=== PATIENT | male | born 1990 | race American Indian/Alaskan Native ===

== ENCOUNTER 2020-09-22 13:05 | Emergency (ER) | payer SELFPAY ==
[2020-09-22 14:25] LABS: Bilirubin,Urine NEG (Negative); Blood,Urine NEG (Negative); Color,Urine Straw (Yellow); Protein,Urine <15 mg/dL mg/dL (Negative); Urobilinogen,Urine < 2.0 mg/dL (<2.0); WBC,Urine < 1.0 /HPF (0.0-6.0)
[2020-09-22 14:34] LABS: Amphetamine Screen,Urine Negative; Benzodiazepines Screen,Urine Negative; Cocaine Screen,Urine Negative; Opiate Screen,Urine Negative
[2020-09-22 14:52] LABS: Basophils % (Auto) 0.4 % (0.0-1.8); Eosinophils # (Auto) 0.2 K/mm3 (0.0-0.4); Eosinophils % (Auto) 3.4 % (0.0-4.3); Hematocrit 43.8 % (35.5-45.6); Hemoglobin 14.4 gm/dl (11.8-15.2); Lymphocytes # (Auto) 1.4 K/mm3 (1.2-5.4); Lymphocytes % (Auto) 22.5 % (13.4-35.0); Mean Corpuscular HGB Conc 33 % (32-34); Mean Corpuscular Volume 87 fl (84-94); Monocytes # (Auto) 0.5 K/mm3 (0.0-0.8); Monocytes % (Auto) 7.5 % (0.0-7.3); Platelet Count 292 K/mm3 (140-440); Red Blood Count 5.02 M/mm3 (3.65-5.03); Red Cell Distribution Width 14.8 % (13.2-15.2)
[2020-09-22 14:58] LABS: Cannabinoid Screen,Urine PRESUMPTIVE NEGATIVE; Methadone Screen,Urine PRESUMPTIVE NEGATIVE
[2020-09-22 15:07] LABS: Alanine Aminotransferase 36 units/L (7-56); Albumin 4.2 g/dL (3.9-5); BUN/Creatinine Ratio 9; Blood Urea Nitrogen 11 mg/dL (9-20); Calcium 9.2 mg/dL (8.4-10.2); Hemolysis Index 8
--- NOTE | 2020-09-22 15:23 | Emergency Department Report ---
ED General Adult HPI - General Chief complaint: Psych Stated complaint: PSYCH Time Seen by Provider: 09/22/20 13:53 Source: patient, EMS Mode of arrival: Ambulatory Limitations: No Limitations - History of Present Illness Initial comments: Patient arrives via [facility] from his [facility] for psychosis. 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 Patient presented her hypervigilant and hyperverbal. Upon the staff trying to give him a shot to calm down the patient became sligh tly aggressive refusing stating it was battery acid. Patient does endorse having a mood disorder states he has been told he has bipolar. Patient denies a history of schizoaffective disorder. Also denies homicidal suicidal ideations. -: unknown Severity scale (0 -10): 0 Consistency: constant Improves with: none Worsens with: none Associated Symptoms: denies other symptoms Treatments Prior to Arrival: none - Related Data Allergies Allergy/AdvReac Type Severity Reaction Status Date / Time pollen extracts Allergy Mild Unknown Verified 09/22/20 13:58 ED Review of Systems ROS: Stated complaint: PSYCH Other details as noted in HPI Comment: All other systems reviewed and negative Constitutional: denies: chills, fever Eyes: denies: eye pain, eye discharge, vision change ENT: denies: ear pain, throat pain Respiratory: denies: cough, shortness of breath, wheezing Cardiovascular: denies: chest pain, palpitations Endocrine: no symptoms reported Gastrointestinal: denies: abdominal pain, nausea, diarrhea Genitourinary: denies: urgency, dysuria Musculoskeletal: denies: back pain, joint swelling, arthralgia Skin: denies: rash, lesions Neurological: denies: headache, weakness, paresthesias Psychiatric: denies: anxiety, depression Hematological/Lymphatic: denies: easy bleeding, easy bruising ED Past Medical Hx - Past Medical History Previous Medical History?: No - Surgical History Past Surgical History?: No - Social History Smoking Status: Never Smoker Substance Use Type: None ED Physical Exam - General Limitations: No Limitations General appearance: alert, in no apparent distress - Head Head exam: Present: atraumatic, normocephalic - Eye Eye exam: Present: normal appearance - ENT ENT exam: Present: mucous membranes moist - Neck Neck exam: Present: normal inspection - Respiratory Respiratory exam: Present: normal lung sounds bilaterally. Absent: respiratory distress - Cardiovascular Cardiovascular Exam: Present: regular rate, normal rhythm. Absent: systolic murmur, diastolic murmur, rubs, gallop - GI/Abdominal GI/Abdominal exam: Present: soft, normal bowel sounds. Absent: distended, tenderness - Rectal Rectal exam: Present: deferred - Extremities Exam Extremities exam: Present: normal inspection - Back Exam Back exam: Present: normal inspection - Neurological Exam Neurological exam: Present: alert, oriented X3, CN II-XII intact. Absent: motor sensory deficit - Psychiatric Psychiatric exam: Present: normal mood, other (Hyperverbal and psychotic) - Skin Skin exam: Present: warm, dry, intact, normal color. Absent: rash ED Course Vital Signs 09/22/20 14:00 Temperature 98.2 F Pulse Rate 61 Respiratory 15 Rate Blood Pressure 115/63 O2 Sat by Pulse 100 Oximetry ED Medical Decision Making - Lab Data Result diagrams: 09/22/20 14:07 09/22/20 14:07 Lab Results 09/22/20 09/22/20 09/22/20 Range/Units 14:07 14:07 14:07 WBC 6.1 (4.5-11.0) K/mm3 RBC 5.02 (3.65-5.03) M/mm3 Hgb 14.4 (11.8-15.2) gm/dl Hct 43.8 (35.5-45.6) % MCV 87 (84-94) fl MCH 29 (28-32) pg MCHC 33 (32-34) % RDW 14.8 (13.2-15.2) % Plt Count 292 (140-440) K/mm3 Lymph % (Auto) 22.5 (13.4-35.0) % [place] % (Auto) 7.5 H (0.0-7.3) % Eos % (Auto) 3.4 (0.0-4.3) % Baso % (Auto) 0.4 (0.0-1.8) % Lymph # (Auto) 1.4 (1.2-5.4) K/mm3 [place] # (Auto) 0.5 (0.0-0.8) K/mm3 Eos # (Auto) 0.2 (0.0-0.4) K/mm3 Baso # (Auto) 0.0 (0.0-0.1) K/mm3 Seg Neutrophils % 66.2 (40.0-70.0) % Seg Neutrophils # 4.1 (1.8-7.7) K/mm3 Sodium 136 L (137-145) mmol/L Potassium 3.9 (3.6-5.0) mmol/L Chloride 100.7 (98-107) mmol/L Carbon Dioxide 29 (22-30) mmol/L Anion Gap 10 mmol/L BUN 11 (9-20) mg/dL Creatinine 1.2 (0.8-1.3) mg/dL Estimated GFR > 60 ml/min BUN/Creatinine Ratio 9 % Glucose 84 (75-100) mg/dL Calcium 9.2 (8.4-10.2) mg/dL Total Bilirubin 0.30 (0.1-1.2) mg/dL AST 26 (5-40) units/L ALT 36 (7-56) units/L Alkaline Phosphatase 64 (35-129) units/L Total Protein 6.9 (6.3-8.2) g/dL Albumin 4.2 (3.9-5) g/dL Albumin/Globulin Ratio 1.6 % Urine Color (Yellow) Urine Turbidity (Clear) Urine pH (5.0-7.0) Ur Specific [place] (1.003-1.030) Urine Protein (Negative) mg/dL Urine Glucose (UA) (Negative) mg/dL Urine Ketones (Negative) mg/dL Urine Blood (Negative) Urine Nitrite (Negative) Urine Bilirubin (Negative) Urine Urobilinogen (<2.0) mg/dL Ur Leukocyte Esterase (Negative) Urine WBC (Auto) (0.0-6.0) /HPF Urine RBC (Auto) (0.0-6.0) /HPF Salicylates < 0.3 L (2.8-20.0) mg/dL Urine Opiates Screen Urine Methadone Screen Acetaminophen (10.0-30.0) ug/mL Ur Barbiturates Screen Ur Phencyclidine Scrn Ur Amphetamines Screen U Benzodiazepines Scrn Urine Cocaine Screen U Marijuana (THC) Screen Drugs of Abuse Note Plasma/Serum Alcohol (0-0.07) % 09/22/20 09/22/20 09/22/20 Range/Units 14:07 14:07 Unknown WBC (4.5-11.0) K/mm3 RBC (3.65-5.03) M/mm3 Hgb (11.8-15.2) gm/dl Hct (35.5-45.6) % MCV (84-94) fl MCH (28-32) pg MCHC (32-34) % RDW (13.2-15.2) % Plt Count (140-440) K/mm3 Lymph % (Auto) (13.4-35.0) % [place] % (Auto) (0.0-7.3) % Eos % (Auto) (0.0-4.3) % Baso % (Auto) (0.0-1.8) % Lymph # (Auto) (1.2-5.4) K/mm3 [place] # (Auto) (0.0-0.8) K/mm3 Eos # (Auto) (0.0-0.4) K/mm3 Baso # (Auto) (0.0-0.1) K/mm3 Seg Neutrophils % (40.0-70.0) % Seg Neutrophils # (1.8-7.7) K/mm3 Sodium (137-145) mmol/L Potassium (3.6-5.0) mmol/L Chloride (98-107) mmol/L Carbon Dioxide (22-30) mmol/L Anion Gap mmol/L BUN (9-20) mg/dL Creatinine (0.8-1.3) mg/dL Estimated GFR ml/min BUN/Creatinine Ratio % Glucose (75-100) mg/dL Calcium (8.4-10.2) mg/dL Total Bilirubin (0.1-1.2) mg/dL AST (5-40) units/L ALT (7-56) units/L Alkaline Phosphatase (35-129) units/L Total Protein (6.3-8.2) g/dL Albumin (3.9-5) g/dL Albumin/Globulin Ratio % Urine Color Straw (Yellow) Urine Turbidity Clear (Clear) Urine pH 7.0 (5.0-7.0) Ur Specific [place] 1.011 (1.003-1.030) Urine Protein <15 mg/dl (Negative) mg/dL Urine Glucose (UA) Neg (Negative) mg/dL Urine Ketones Neg (Negative) mg/dL Urine Blood Neg (Negative) Urine Nitrite Neg (Negative) Urine Bilirubin Neg (Negative) Urine Urobilinogen < 2.0 (<2.0) mg/dL Ur Leukocyte Esterase Neg (Negative) Urine WBC (Auto) < 1.0 (0.0-6.0) /HPF Urine RBC (Auto) 1.0 (0.0-6.0) /HPF Salicylates (2.8-20.0) mg/dL Urine Opiates Screen Urine Methadone Screen Acetaminophen 5.0 L (10.0-30.0) ug/mL Ur Barbiturates Screen Ur Phencyclidine Scrn Ur Amphetamines Screen U Benzodiazepines Scrn Urine Cocaine Screen U Marijuana (THC) Screen Drugs of Abuse Note Plasma/Serum Alcohol < 0.01 (0-0.07) % 09/22/20 Range/Units Unknown WBC (4.5-11.0) K/mm3 RBC (3.65-5.03) M/mm3 Hgb (11.8-15.2) gm/dl Hct (35.5-45.6) % MCV (84-94) fl MCH (28-32) pg MCHC (32-34) % RDW (13.2-15.2) % Plt Count (140-440) K/mm3 Lymph % (Auto) (13.4-35.0) % [place] % (Auto) (0.0-7.3) % Eos % (Auto) (0.0-4.3) % Baso % (Auto) (0.0-1.8) % Lymph # (Auto) (1.2-5.4) K/mm3 [place] # (Auto) (0.0-0.8) K/mm3 Eos # (Auto) (0.0-0.4) K/mm3 Baso # (Auto) (0.0-0.1) K/mm3 Seg Neutrophils % (40.0-70.0) % Seg Neutrophils # (1.8-7.7) K/mm3 Sodium (137-145) mmol/L Potassium (3.6-5.0) mmol/L Chloride (98-107) mmol/L Carbon Dioxide (22-30) mmol/L Anion Gap mmol/L BUN (9-20) mg/dL Creatinine (0.8-1.3) mg/dL Estimated GFR ml/min BUN/Creatinine Ratio % Glucose (75-100) mg/dL Calcium (8.4-10.2) mg/dL Total Bilirubin (0.1-1.2) mg/dL AST (5-40) units/L ALT (7-56) units/L Alkaline Phosphatase (35-129) units/L Total Protein (6.3-8.2) g/dL Albumin (3.9-5) g/dL Albumin/Globulin Ratio % Urine Color (Yellow) Urine Turbidity (Clear) Urine pH (5.0-7.0) Ur Specific [place] (1.003-1.030) Urine Protein (Negative) mg/dL Urine Glucose (UA) (Negative) mg/dL Urine Ketones (Negative) mg/dL Urine Blood (Negative) Urine Nitrite (Negative) Urine Bilirubin (Negative) Urine Urobilinogen (<2.0) mg/dL Ur Leukocyte Esterase (Negative) Urine WBC (Auto) (0.0-6.0) /HPF Urine RBC (Auto) (0.0-6.0) /HPF Salicylates (2.8-20.0) mg/dL Urine Opiates Screen Negative Urine Methadone Screen Presumptive negative Acetaminophen (10.0-30.0) ug/mL Ur Barbiturates Screen Negative Ur Phencyclidine Scrn Negative Ur Amphetamines Screen Negative U Benzodiazepines Scrn Negative Urine Cocaine Screen Negative U Marijuana (THC) Screen Presumptive negative Drugs of Abuse Note Disclamer Plasma/Serum Alcohol (0-0.07) % - Medical Decision Making Patient placed in the ED hold Patient arrival 1013 Patient medically cleared Awaiting mental health evaluation Critical care attestation.: If time is entered above; I have spent that time in minutes in the direct care of this critically ill patient, excluding procedure time. ED Disposition Clinical Impression: Psychosis Disposition: DC/TX-65 PSY HOSP/PSY UNIT Is pt being admited?: No Does the pt Need Aspirin: No Condition: Stable Referrals: PRIMARY CARE, [Primary Care Provider] - 3-5 Days
[2020-09-22 19:59] VITALS: BP 129/98
== END 2020-09-22 20:52 ==
LOC: ED 13:05
DX: F29 Unspecified psychosis not due to a substance or known physiological condition (principal); Z91.048 Other nonmedicinal substance allergy status
CPT/HCPCS: 36415; 80053; 80307; 80320; 81001; 85025; G0480

== ENCOUNTER 2021-01-20 15:05 | Inpatient (IN) | payer OTHER ==
[2021-01-20] MEDS ORDERED: LORazepam 2 MG/ML VIAL ONE (16:11)
[2021-01-20] MEDS ORDERED: ZIPRASIDONE MESYLATE 20 MG VIAL IM ONE (16:11)
--- NOTE | 2021-01-20 16:15 | Emergency Department Report ---
HPI - General Chief Complaint: Altered Mental Status Time Seen by Provider: 01/20/21 15:55 - HPI HPI: This is a 30-year-old -[place] male who presents to the emergency department via EMS for a medical and mental health evaluation after he was brou ght in for excited delirium. 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 Apparently the patient did not call in for his part-time job on Friday. He spent most of Friday, , Friday in his room. Today, his mother found him standing in the hallway naked just staring. She called for EMS and when they arrived he was seen laying in the position in the bathroom. They mentioned about bringing him to the emergency department and he became very agitated and aggressive and required 5 mg of Haldol, 5 mg of Versed, and 50 mg of Benadryl to sedate him and get him to the emergency department. The patient has been in the emergency department for about 50 minutes prior to my shift starting. I immediately went into see this patient in room #22 and got some history from EMS at bedside. The patient was arousable. As soon as I explained that the patient was brought in for an evaluation with concern for his mental state, the patient sat up and pulled off all of his monitoring, pulse ox and blood pressure cuff. Initially the patient was unable to tell me the appropriate year, but says it was because he just woke up after receiving these medications. After a few minutes the patient was able to tell me the year and the current president, and answer orientation questions appropriately. EMS also tells me that the mother has some kind of power of claims attorney. As we were getting the mother back to give more collateral information and explain the power of claims attorney status, the patient eloped from the emergency department. Our security was called but had not yet arrived. [facility] police have been called. The patient was seen here in September of this year for a mental health evaluation. 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 At that time he had admitted to my colleague that he had a history of a mood disorder and was told that he was bipolar. During that emergency department visit, the patient was transferred to a psychiatric facility. If the patient is found and brought back to the emergency department, he will be a 1013 and ED hold. I was able to speak with the patient's mother. She did show me appropriate power of claims attorney for medical decision making. She was able to give collateral information that does mirror the story told to me by [facility]. Adán roe says that once the patient came back Friday, he did not say another word until he spoke to me in the emergency department. She states that he has not been acting right. The patient was found and is currently down the hill at [facility] station #1. Mom says that she would like to avoid having the patient brought in by the police and has requested the patient receive medication to get him back into the emergency department. Mom also says that the patient was previously at [facility] and she will not allow him to go back to [facility] as she feels that he, and her, were not treated appropriately. ED Past Medical Hx - Social History Smoking Status: Never Smoker ED Review of Systems ROS: Stated complaint: MH EVAL Other details as noted in HPI Comment: Unobtainable due to pts medical conditions Physical Exam - Physical Exam Vital Signs: Vital Signs 01/20/21 15:55 O2 Sat by Pulse 100 Oximetry Physical Exam: GENERAL: The patient is well-developed well-nourished. HENT: Normocephalic. Atraumatic. Patient has moist mucous membranes. EYES: Extraocular motions are intact. Pupils equal reactive to light bilatera lly. NECK: Supple. Trachea is midline. CHEST/LUNGS: Clear to auscultation. There is no respiratory distress noted. HEART/CARDIOVASCULAR: Regular. There is no tachycardia. There is no murmur. ABDOMEN: Abdomen is soft, nontender. Patient has normal bowel sounds. SKIN: Skin is warm and dry. NEURO: Patient is awake and alert. He is not cooperative. No obvious motor or focal deficits. MUSCULOSKELETAL: There is no tenderness or deformity. There is no limitation range of motion. ED Course Vital Signs 01/20/21 15:55 O2 Sat by Pulse 100 Oximetry - Reevaluation(s) Reevaluation #1: 01/20/21 17:30 The patient was down at the [facility], station #1. Initially his family, as well as the fire department, were able to talk with the patient and get him to return to the emergency department without any further medication given. However, as the patient was walking back towards the psychiatric area of the emergency department, he turned around and attempted to elope again. The patient was given 5 mg of Haldol, 2 mg of Ativan, and 25 mg of Benadryl. The patient is now back in room #14 and is resting comfortably. Blood work has been obtained. The patient is on a 1013 and an ED hold. Reevaluation #2: 01/20/21 19:46 The patient CK level came back at about 2000. He has some mild renal insufficiency with a GFR of 50. There is a slight elevation in the AST level. We do not yet have a urinalysis. I spoke to the patient and while he may still have some sedation from the previous medications, he has initially agreed for an IV to be placed and to receive IV fluid. After the patient receives the IV fluid we will repeat the CK level and BMP to see if the patient can be medically cleared versus needing a medical admission. ED Medical Decision Making - Lab Data Result diagrams: 01/20/21 17:55 01/20/21 22:30 Lab Results 01/20/21 01/20/21 01/20/21 Range/Units 17:55 17:55 17:55 WBC 9.6 (4.5-11.0) K/mm3 RBC 5.64 H (3.65-5.03) M/mm3 Hgb 15.6 H (11.8-15.2) gm/dl Hct 48.6 H (35.5-45.6) % MCV 86 (84-94) fl MCH 28 (28-32) pg MCHC 32 (32-34) % RDW 13.5 (13.2-15.2) % Plt Count 295 (140-440) K/mm3 Lymph % (Auto) 17.5 (13.4-35.0) % [place] % (Auto) 7.7 H (0.0-7.3) % Eos % (Auto) 0.6 (0.0-4.3) % Baso % (Auto) 0.2 (0.0-1.8) % Lymph # (Auto) 1.7 (1.2-5.4) K/mm3 [place] # (Auto) 0.7 (0.0-0.8) K/mm3 Eos # (Auto) 0.1 (0.0-0.4) K/mm3 Baso # (Auto) 0.0 (0.0-0.1) K/mm3 Seg Neutrophils % 74.0 H (40.0-70.0) % Seg Neutrophils # 7.1 (1.8-7.7) K/mm3 Sodium 136 L (137-145) mmol/L Potassium 3.4 L (3.6-5.0) mmol/L Chloride 96.0 L (98-107) mmol/L Carbon Dioxide 13 L (22-30) mmol/L Anion Gap 30 mmol/L BUN 24 H (9-20) mg/dL Creatinine 1.9 H (0.8-1.3) mg/dL Estimated GFR 50 ml/min BUN/Creatinine Ratio 13 % Glucose 113 H (75-100) mg/dL Calcium 10.1 (8.4-10.2) mg/dL Total Bilirubin 1.10 (0.1-1.2) mg/dL AST 76 H (5-40) units/L ALT 51 (7-56) units/L Alkaline Phosphatase 58 (35-129) units/L Total Creatine Kinase (55-170) units/L Total Protein 7.8 (6.3-8.2) g/dL Albumin 4.7 (3.9-5) g/dL Albumin/Globulin Ratio 1.5 % Plasma/Serum Alcohol < 0.01 (0-0.07) % 01/20/21 01/20/21 01/20/21 Range/Units 17:55 22:30 22:30 WBC (4.5-11.0) K/mm3 RBC (3.65-5.03) M/mm3 Hgb (11.8-15.2) gm/dl Hct (35.5-45.6) % MCV (84-94) fl MCH (28-32) pg MCHC (32-34) % RDW (13.2-15.2) % Plt Count (140-440) K/mm3 Lymph % (Auto) (13.4-35.0) % [place] % (Auto) (0.0-7.3) % Eos % (Auto) (0.0-4.3) % Baso % (Auto) (0.0-1.8) % Lymph # (Auto) (1.2-5.4) K/mm3 [place] # (Auto) (0.0-0.8) K/mm3 Eos # (Auto) (0.0-0.4) K/mm3 Baso # (Auto) (0.0-0.1) K/mm3 Seg Neutrophils % (40.0-70.0) % Seg Neutrophils # (1.8-7.7) K/mm3 Sodium 137 (137-145) mmol/L Potassium 4.1 D (3.6-5.0) mmol/L Chloride 105.6 (98-107) mmol/L Carbon Dioxide 22 D (22-30) mmol/L Anion Gap 14 mmol/L BUN 23 H (9-20) mg/dL Creatinine 1.7 H (0.8-1.3) mg/dL Estimated GFR 57 ml/min BUN/Creatinine Ratio 14 % Glucose 84 (75-100) mg/dL Calcium 8.3 L D (8.4-10.2) mg/dL Total Bilirubin (0.1-1.2) mg/dL AST (5-40) units/L ALT (7-56) units/L Alkaline Phosphatase (35-129) units/L Total Creatine Kinase 1925 H 3416 H (55-170) units/L Total Protein (6.3-8.2) g/dL Albumin (3.9-5) g/dL Albumin/Globulin Ratio % Plasma/Serum Alcohol (0-0.07) % - Medical Decision Making The patient was initially brought in by EMS after his mother called 911 for what appears to be some psychosis. As previously stated, the patient became very agitated and aggressive when EMS arrived and discussed coming to the hospital. The patient required multiple medications for excited delirium. Initially I saw the patient in bed #21. Despite the sedation, the patient was easily arousable. After introducing myself as the emergency department physician and discussing both a medical and psychiatric evaluation, the patient once again became very agitated, began cursing at myself and ER staff, and then eloped from the emergency department. The patient was followed by his [facility] colleagues and they were able to get him into station #1 just down the hill. Then, along with his parents, they were able to get him to return to the emergency department. However, he did require another dose of medications once he saw that he was going to the psychiatric portion of the emergency department. The patient was placed on a 1013 and ED hold for what appears to be acute psychosis. The patient's blood work came back showing some renal insufficiency with a creatinine of 1.9, GFR of 50. He had some elevation in his AST, and the patient had some hypokalemia. With these lab values, and the fact the patient remained in his room at his home for about 3 days, followed by some excited delirium requiring medications, I had concern for possible rhabdomyolysis. His initial CK level came back at 1900. The patient was then given 2 L of IV fluid. His labs were rechecked and while the renal insufficiency improved, his CK level went up to 3400. I have concerned that his CK level will continue to increase over the next 24 to 48 hours. The patient will need further IV fluid resuscit ation, repeat labs to monitor his kidney function and CK level, and therefore is not able to be medically cleared for psychiatric placement at this time. The patient will be a medical admission but will remain as a 1013 and will be seen by the psychiatric team for further evaluation and treatment and possible placement. The patient has been accepted for admission by the hospitalist, Dr. Michelle. I also spoke with the patient's mother, his power of claims attorney, and updated her regarding the medical admission. Critical Care Time: No Critical care attestation.: If time is entered above; I have spent that time in minutes in the direct care of this critically ill patient, excluding procedure time. ED Disposition Clinical Impression: Rhabdomyolysis, Mild renal insufficiency, Acute psychosis, LFT elevation, Dehydration Disposition: OP ADMIT IP TO THIS HOSP Is pt being admited?: Yes Condition: Fair Time of Disposition: 00:12
[2021-01-20 18:43] LABS: Albumin 4.7 g/dL (3.9-5); Calcium 10.1 mg/dL (8.4-10.2)
[2021-01-20 18:45] LABS: Basophils % (Auto) 0.2 % (0.0-1.8); Eosinophils # (Auto) 0.1 K/mm3 (0.0-0.4); Eosinophils % (Auto) 0.6 % (0.0-4.3); Hematocrit 48.6 % (35.5-45.6); Hemoglobin 15.6 gm/dl (11.8-15.2); Lymphocytes # (Auto) 1.7 K/mm3 (1.2-5.4); Lymphocytes % (Auto) 17.5 % (13.4-35.0); Mean Corpuscular HGB Conc 32 % (32-34); Mean Corpuscular Volume 86 fl (84-94); Monocytes # (Auto) 0.7 K/mm3 (0.0-0.8); Monocytes % (Auto) 7.7 % (0.0-7.3); Platelet Count 295 K/mm3 (140-440); Red Blood Count 5.64 M/mm3 (3.65-5.03); Red Cell Distribution Width 13.5 % (13.2-15.2)
[2021-01-20] MEDS ORDERED: POTASSIUM CHLORIDE ER 20 MEQ TAB PO ONE (18:56)
[2021-01-20] MEDS ORDERED: SODIUM CHLORIDE 0.9% 1000 ML 1,000 ML IV ONE ×3 (19:33→23:48)
[2021-01-20 23:16] LABS: Calcium 8.3 mg/dL (8.4-10.2)
[2021-01-21] MEDS ORDERED: ONDANSETRON 4 MG/2 ML INJ IV PRN (00:27)
[2021-01-21] MEDS ORDERED: ALBUTEROL 2.5 MG/3 ML NEBU IH PRN (00:27)
[2021-01-21] MEDS ORDERED: ACETAMINOPHEN 325 MG TAB PO PRN (00:27)
--- NOTE | 2021-01-21 00:36 | History and Physical Report ---
History of Present Illness Date of examination: 01/21/21 Date of admission: 01/21/2021 Chief complaint: Altered mental status History of present illness: 30-year-old -[place] male who presents to the emergency department via EMS for a medical and mental health evaluation after he was brought in for excited delirium. 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 Katty arently the patient did not call in for his part-time job on Friday. He spent most of Friday, , Friday in his room. Today, his mother found him standing in the hallway naked just staring. She called for EMS and when they arrived he was seen laying in the position in the bathroom. They mentioned about bringing him to the emergency department and he became very agitated and aggressive and required 5 mg of Haldol, 5 mg of Versed, and 50 mg of Benadryl to sedate him and get him to the emergency department. The patient has been in the emergency department for about 50 minutes prior to my shift starting. I immediately went into see this patient in room #22 and got some hi story from EMS at bedside. The patient was arousable. As soon as I explained that the patient was brought in for an evaluation with concern for his mental state, the patient sat up and pulled off all of his monitoring, pulse ox and blood pressure cuff. Initially the patient was unable to tell me the appropriate year, but says it was because he just woke up after receiving these medications. After a few minutes the patient was able to tell me the year and the current president, and answer orientation questions appropriately. EMS also tells me that the mother has some kind of power of document review attorney. As we were getting the mother back to give more collateral information and explain the power of document review attorney status, the patient eloped from the emergency department. Our security was called but had not yet arrived. [employer] police have been called. The patient was seen here in September of this year for a mental health evaluation. At that time the patient presented as part of a 1013 that was done by [place] [employer]. At that time he had admitted to my colleague that he had a history of a mood disorder and was told that he was bipolar. During that emergency department visit, the patient was transferred to a psychiatric facility. In the emergency room patient is found to have 1013. Also patient found to have rhabdomyolysis CKs 3416, BUN 23 creatinine 1.7 Past History Past Medical History: other (Psychosis, bipolar disorder) Medications and Allergies Allergies Allergy/AdvReac Type Severity Reaction Status Date / Time pollen extracts Allergy Mild Unknown Verified 09/22/20 13:58 Active Meds: Active Medications Acetaminophen (Acetaminophen 325 Mg Tab) 650 mg PO Q4H PRN PRN Reason: Pain MILD(1-3)/Fever >100.5/SALAS Albuterol (Albuterol 2.5 Mg/3 Ml Nebu) 2.5 mg IH Q4HRT PRN PRN Reason: Shortness Of Breath Famotidine (Famotidine 20 Mg Tab) 20 mg PO BID RICKY Heparin Sodium (Porcine) (Heparin 5,000 Unit/1 Ml Vial) 5,000 unit SUB-Q Q12HR RICKY Sodium Chloride (Nacl 0.9% 1000 Ml) 1,000 mls @ 999 mls/hr IV BOLUS ONE Stop: 01/21/21 00:48 Sodium Chloride (Nacl 0.45% 1000 Ml) 1,000 mls @ 125 mls/hr IV DIRECT RICKY Ondansetron HCl (Ondansetron 4 Mg/2 Ml Inj) 4 mg IV Q8H PRN PRN Reason: Nausea And Vomiting Sodium Chloride (Sodium Chloride 0.9% 10 Ml Flush Syringe) 10 ml IV BID RICKY Sodium Chloride (Sodium Chloride 0.9% 10 Ml Flush Syringe) 10 ml IV PRN PRN PRN Reason: LINE FLUSH Review of Systems Constitutional: other (Altered mental status) Neurological: change in mentation Psychiatric: anxiety Exam - Constitutional Vitals: Temp Pulse Resp BP Pulse Ox 103 H 13 92/43 98 01/20/21 16:00 01/20/21 16:00 01/20/21 16:00 01/20/21 16:00 General appearance: Present: no acute distress, well-nourished - EENT Eyes: Present: PERRL ENT: hearing intact, clear oral mucosa - Neck Neck: Present: supple, normal ROM - Respiratory Respiratory effort: normal Respiratory: bilateral: CTA - Cardiovascular Heart Sounds: Present: S1 & S2. Absent: rub, click - Extremities Extremities: pulses symmetrical, No edema Peripheral Pulses: within normal limits - Abdominal General gastrointestinal: Present: soft, non-tender, non-distended, normal bowel sounds Male genitourinary: Present: normal - Integumentary Integumentary: Present: clear, warm, dry - Musculoskeletal Musculoskeletal: gait normal, strength equal bilaterally - Psychiatric Psychiatric: appropriate mood/affect, intact judgment & insight - Neurologic Neurologic: CNII-XII intact, moves all extremities Results - Labs CBC & Chem 7: 01/20/21 17:55 01/20/21 22:30 Labs: Laboratory Last Values WBC 9.6 K/mm3 (4.5-11.0) 01/20/21 17:55 RBC 5.64 M/mm3 (3.65-5.03) H 01/20/21 17:55 Hgb 15.6 gm/dl (11.8-15.2) H 01/20/21 17:55 Hct 48.6 % (35.5-45.6) H 01/20/21 17:55 MCV 86 fl (84-94) 01/20/21 17:55 MCH 28 pg (28-32) 01/20/21 17:55 MCHC 32 % (32-34) 01/20/21 17:55 RDW 13.5 % (13.2-15.2) 01/20/21 17:55 Plt Count 295 K/mm3 (140-440) 01/20/21 17:55 Lymph % (Auto) 17.5 % (13.4-35.0) 01/20/21 17:55 [place] % (Auto) 7.7 % (0.0-7.3) H 01/20/21 17:55 Eos % (Auto) 0.6 % (0.0-4.3) 01/20/21 17:55 Baso % (Auto) 0.2 % (0.0-1.8) 01/20/21 17:55 Lymph # (Auto) 1.7 K/mm3 (1.2-5.4) 01/20/21 17:55 [place] # (Auto) 0.7 K/mm3 (0.0-0.8) 01/20/21 17:55 Eos # (Auto) 0.1 K/mm3 (0.0-0.4) 01/20/21 17:55 Baso # (Auto) 0.0 K/mm3 (0.0-0.1) 01/20/21 17:55 Seg Neutrophils % 74.0 % (40.0-70.0) H 01/20/21 17:55 Seg Neutrophils # 7.1 K/mm3 (1.8-7.7) 01/20/21 17:55 Sodium 137 mmol/L (137-145) 01/20/21 22:30 Potassium 4.1 mmol/L (3.6-5.0) D 01/20/21 22:30 Chloride 105.6 mmol/L (98-107) 01/20/21 22:30 Carbon Dioxide 22 mmol/L (22-30) D 01/20/21 22:30 Anion Gap 14 mmol/L 01/20/21 22:30 BUN 23 mg/dL (9-20) H 01/20/21 22:30 Creatinine 1.7 mg/dL (0.8-1.3) H 01/20/21 22:30 Estimated GFR 57 ml/min 01/20/21 22:30 BUN/Creatinine Ratio 14 % 01/20/21 22:30 Glucose 84 mg/dL (75-100) 01/20/21 22:30 Calcium 8.3 mg/dL (8.4-10.2) L D 01/20/21 22:30 Total Bilirubin 1.10 mg/dL (0.1-1.2) 01/20/21 17:55 AST 76 units/L (5-40) H 01/20/21 17:55 ALT 51 units/L (7-56) 01/20/21 17:55 Alkaline Phosphatase 58 units/L (35-129) 01/20/21 17:55 Total Creatine Kinase 3416 units/L (55-170) H 01/20/21 22:30 Total Protein 7.8 g/dL (6.3-8.2) 01/20/21 17:55 Albumin 4.7 g/dL (3.9-5) 01/20/21 17:55 Albumin/Globulin Ratio 1.5 % 01/20/21 17:55 Plasma/Serum Alcohol < 0.01 % (0-0.07) 01/20/21 17:55 Assessment and Plan VTE prophylaxis?: Chemical Plan of care discussed with patient/family: Yes - Patient Problems (1) Rhabdomyolysis Current Visit: Yes Status: Acute Plan to address problem: Admit the patient to the medical floor. Regular diet. Half-normal saline at the rate of 125 cc/h. We will recheck the CK in the morning. Repeat BMP in the morning. Nephrology consult (2) Acute psychosis Current Visit: Yes Status: Acute Plan to address problem: Admit the patient to the medical floor. Patient is 1013. We consults psychiatry evaluation. Medication as per psych recommendation (3) Dehydration Current Visit: Yes Status: Acute Plan to address problem: Half-normal saline at the rate of 125 cc/h. We will recheck the CK in the morning. Repeat BMP in the morning. Nephrology consult (4) LFT elevation Current Visit: Yes Status: Acute Plan to address problem: We will recheck the CMP in the morning if needed will consult GI (5) KAMILLE (acute kidney injury) Current Visit: Yes Status: Acute Plan to address problem: Half-normal saline at the rate of 125 cc/h. Avoid nephrotoxic drug. Renally dose medication. Repeat BMP in the morning. Nephrology consult (6) DVT prophylaxis Current Visit: Yes Status: Acute Plan to address problem: Heparin 5000 units subcu every 12 hours for DVT prophylaxis. Pepcid 20 mg p.o. twice daily for GI prophylaxis. Patient is a full code
[2021-01-21] MEDS ORDERED: SODIUM CHLORIDE 0.45% 1000 ML 1,000 ML IV SCH (01:00)
--- NOTE | 2021-01-21 08:17 | Consultation ---
History of Present Illness - Reason for Consult Consult date: 01/21/21 acute renal failure - History of Present Illness 30-year-old -Turkish male who presents to the emergency department via EMS for a medical and mental health evaluation after he was brought in for excited delirium. in the ER he became very agitated and aggressive and required 5 mg of Haldol, 5 mg of Versed, and 50 mg of Benadryl to sedate him and get him to the emergency department. In the emergency room patient is found to have 1013. Also patient found to have rhabdomyolysis CKs 3416, BUN 23 creatinine 1.7 and renal consult was requested Past History Past Medical History: other (Psychosis, bipolar disorder) Medications and Allergies Allergies Allergy/AdvReac Type Severity Reaction Status Date / Time pollen extracts Allergy Mild Unknown Verified 09/22/20 13:58 Active Meds: Active Medications Acetaminophen (Acetaminophen 325 Mg Tab) 650 mg PO Q4H PRN PRN Reason: Pain MILD(1-3)/Fever >100.5/SALAS Albuterol (Albuterol 2.5 Mg/3 Ml Nebu) 2.5 mg IH Q4HRT PRN PRN Reason: Shortness Of Breath Famotidine (Famotidine 20 Mg Tab) 20 mg PO BID RICKY Heparin Sodium (Porcine) (Heparin 5,000 Unit/1 Ml Vial) 5,000 unit SUB-Q Q12HR RICKY Sodium Chloride (Nacl 0.45% 1000 Ml) 1,000 mls @ 125 mls/hr IV DIRECT RICKY Ondansetron HCl (Ondansetron 4 Mg/2 Ml Inj) 4 mg IV Q8H PRN PRN Reason: Nausea And Vomiting Sodium Chloride (Sodium Chloride 0.9% 10 Ml Flush Syringe) 10 ml IV BID RICKY Sodium Chloride (Sodium Chloride 0.9% 10 Ml Flush Syringe) 10 ml IV PRN PRN PRN Reason: LINE FLUSH Review of Systems ROS unobtainable: due to mental status Exam - Vital Signs Vital signs: Vital Signs Pulse Ox 100 01/20/21 15:22 - General Appearance General appearance: well-developed, well-nourished EENT: ATNC, mucous membranes dry Neck: Present: neck supple Respiratory: Clear to Ascultation Heart: tachycardia Gastrointestinal: Present: normoactive bowel sounds Integumentary: no rash, warm and dry Neurologic: other (does not follow commands) Musculoskeletal: Present: other (no edema in BLE) Results - Lab Results 01/20/21 17:55 01/20/21 22:30 Most recent lab results Calcium 8.3 mg/dL (8.4-10.2) L D 01/20/21 22:30 Assessment and Plan (1) Rhabdomyolysis (2) Acute psychosis (3) Dehydration (4) LFT elevation (5) KAMILLE (acute kidney injury) kidney function is normal at baseline, KAMILLE 2/2 prerenal azotemia cont NS 125 cc/h will check renal US will check urine lytes and protein will cont to monitor CK, it is trending down renally dose meds strict I&O daily weight Andrea Jackson MD [phone]
--- NOTE | 2021-01-21 08:21 | XRay Report ---
CHEST 1 VIEW INDICATION: Altered mental status. COMPARISON: None. FINDINGS: Support devices: None. Heart: Normal. Lungs/Pleura: No acute pulmonary or pleural findings. IMPRESSION: 1. No acute findings. Signer Name: Avinash Valdez MD Signed: 01/21/2021 8:17 AM Workstation Name: [id number]
[2021-01-21] MEDS: HEPARIN 5,000 UNIT/1 ML VIAL SUB-Q SCH (10:37)
[2021-01-21] MEDS: FAMOTIDINE 20 MG TAB PO SCH ×2 (10:37→22:00)
--- NOTE | 2021-01-21 10:41 | Event Note ---
Date: 01/21/21 Patient presented with altered mental status, acute kidney injury, rhabdomyolysis. I have seen and examined him. Continue current management. Psych consulted.
[2021-01-21] MEDS ORDERED: SODIUM CHLORIDE 0.9% 1000 ML 1,000 ML IV SCH (10:45)
--- NOTE | 2021-01-21 11:22 | Ultrasound Report ---
ULTRASOUND RENAL INDICATION: renal failure. COMPARISON: No relevant prior imaging study available. FINDINGS: RIGHT KIDNEY: Size: 11.2 cm. Echogenicity: Increased. Cortical thickness: Normal. Stones: None. Hydronephrosis: None. Cyst or mass: None. LEFT KIDNEY: Size: 11.1 cm. Echogenicity: Increased. Cortical thickness: Normal. Stones: None. Hydronephrosis: None. Cyst or mass: None. Urinary Bladder: No significant abnormality. Free Fluid: None. Additional Findings: None. IMPRESSION 1. No acute sonographic abnormality of the kidneys. Increased echogenicity in the cortex of both kidn eys can be seen in the setting of medical renal disease. Signer Name: Avinash Valdez MD Signed: 01/21/2021 11:17 AM Workstation Name: [id number]
--- NOTE | 2021-01-21 11:35 | Consultation ---
History of Present Illness - Reason for Consult Consult date: 01/21/21 Reason for consult: AMS - History of Present Psychiatric Illness Per ER Note: This is a 30-year-old -Malagasy male who presents to the emergency department via EMS for a medical and mental health evaluation after he was brought in for excited delirium. 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 Apparently the patient did not call in for his part-time job on Friday. He spent most of Friday, , Friday in his room. Today, his mother found him standing in the hallway naked just staring. She called for EMS and when they arrived he was seen laying in the position in the bathroom. They mentioned about bringing him to the emergency department and he became very agitated and aggressive and required 5 mg of Haldol, 5 mg of Versed, and 50 mg of Benadryl to sedate him and get him to the emergency department. The patient has been in the emergency department for about 50 minutes prior to my shift starting. I immediately went into see this patient in room #22 and got some history from EMS at bedside. The patient was arousable. As soon as I explained that the patient was brought in for an evaluation with concern for his mental state, the patient sat up and pulled off all of his monitoring, pulse ox and blood pressure cuff. Initially the patient was unable to tell me the appropriate year, but says it was because he just woke up after receiving these medications. After a few minutes the patient was able to tell me the year and the current president, and answer orientation questions appropriately. EMS also tells me that the mother has some kind of power of litigation attorney. As we were getting the mother back to give more collateral information and explain the power of litigation attorney status, the patient eloped from the emergency department. Our security was called but had not yet arrived. [facility] police have been called. During my evaluation of 30y/o Donte Ferguson, he is lying in n his back staring at the ceiling. He doesn't look at me or acknowledge me when I walk up. The patient does speak to me but he continues to stare at the ceiling. He is a/o x 3. He doesn't appear to be forthcoming about what is really going on with him. He says his mom called 911 but he's unsure why. He says "she did it without speaking to me." I asked the patient why did his mother think he needed medical attention, he replies "I don't know. I'm not sure why she would call 911." I ask him what was going on at the time when 911 was called. The patient says "I was in the bathroom praying out loud to God. It wasn't meant for her to hear." When asking the patient what he was praying out loud about he states "I don't remember. It was for God." The patient denies hallucinations when asked, but I ask him why is he staring at the ceiling and not looking at me, he replies "I'm looking at God. I only need to see him." The patient denies SI/HI. He says he did have an attempt "in his college days." He then says "I have felt suicidal on up til now." When asking the patient again was he suicidal he replies "no." He says he was recently admitted to [facility] on Good Friday of this year he says for Mood Disorder. He denies taking any medications, he says "because I don't need them." Diagnoses: Mood disorder Suicide attempts or Self-harm behavior: Yes Prior psychiatric hospitalizations: Yes Substance Abuse history: Denies Previous psychiatric medications tried: did not take them Outpatient treatment: Denies PAST MEDICAL HISTORY: None reported Family Psychiatric History: None reported or documented SOCIAL HISTORY Marital Status: Single Living Arrangements: with mother Employment Status: Employed Access to guns/weapons: Denies Education: high school History of Abuse: none reported Legal History: none reported REVIEW OF SYSTEMS Constitutional: Negative for weight loss ENT: Negative for stridor Respiratory: Negative for cough or hemoptysis All other systems reviewed and are negative MENTAL STATUS EXAMINATION General Appearance and Behavior: Age appropriate, good hygiene, wearing appropriate clothes, calm, cooperative, no eye contact Cooperation: Participating, guarded Psychomotor Behavior: normal Mood: okay Affect and affective range: Restricted Thought Process: goal oriented Thought Content: None Speech: Normal volume, Regular rate and rhythm, Suicidal Ideation: Unclear Homicidal Ideation: Denies Hallucinations: Visual Delusions: None elicited Impulse Control: Normal Insight and Judgment: Limited insight and judgment Memory: Limited Attention: Limited Orientation: Alert, oriented Assessment and Plan (1) Acute Psychosis Treatment Plan 1013 Olanzapine 5mg po daily Prozac 10mg po daily Trazodone 50mg po qhs Medical: Per primary Sitter: Defer to primary Disposition: Recommend acute psychiatric inpatient treatment. Will follow. Thanks. Case staffed with Dr. Ford. Medications and Allergies Allergies Allergy/AdvReac Type Severity Reaction Status Date / Time pollen extracts Allergy Mild Unknown Verified 09/22/20 13:58 Active Meds: Active Medications Acetaminophen (Acetaminophen 325 Mg Tab) 650 mg PO Q4H PRN PRN Reason: Pain MILD(1-3)/Fever >100.5/SALAS Albuterol (Albuterol 2.5 Mg/3 Ml Nebu) 2.5 mg IH Q4HRT PRN PRN Reason: Shortness Of Breath Famotidine (Famotidine 20 Mg Tab) 20 mg PO BID [facility] Last Admin: 01/21/21 10:37 Dose: 20 mg Documented by: Heparin Sodium (Porcine) (Heparin 5,000 Unit/1 Ml Vial) 5,000 unit SUB-Q Q12HR [facility] Last Admin: 01/21/21 10:37 Dose: Not Given Documented by: Sodium Chloride (Nacl 0.45% 1000 Ml) 1,000 mls @ 125 mls/hr IV DIRECT [facility] Ondansetron HCl (Ondansetron 4 Mg/2 Ml Inj) 4 mg IV Q8H PRN PRN Reason: Nausea And Vomiting Sodium Chloride (Sodium Chloride 0.9% 10 Ml Flush Syringe) 10 ml IV BID [facility] Last Admin: 01/21/21 10:37 Dose: 10 ml Documented by: Sodium Chloride (Sodium Chloride 0.9% 10 Ml Flush Syringe) 10 ml IV PRN PRN PRN Reason: LINE FLUSH Mental Status Exam - Vital signs Last Vital Signs Temp 98.6 F 01/21/21 08:38 Pulse 92 H 01/21/21 08:38 Resp 18 01/21/21 08:38 BP 119/72 01/21/21 08:38 Pulse Ox 95 01/21/21 09:24 Results Result Diagrams: 01/20/21 17:55 01/20/21 22:30 Abnormal lab results 01/20/21 01/20/21 01/20/21 Range/Units 17:55 17:55 17:55 RBC 5.64 H (3.65-5.03) M/mm3 Hgb 15.6 H (11.8-15.2) gm/dl Hct 48.6 H (35.5-45.6) % [place] % (Auto) 7.7 H (0.0-7.3) % Seg Neutrophils % 74.0 H (40.0-70.0) % Sodium 136 L (137-145) mmol/L Potassium 3.4 L (3.6-5.0) mmol/L Chloride 96.0 L (98-107) mmol/L Carbon Dioxide 13 L (22-30) mmol/L BUN 24 H (9-20) mg/dL Creatinine 1.9 H (0.8-1.3) mg/dL Glucose 113 H (75-100) mg/dL Calcium (8.4-10.2) mg/dL AST 76 H (5-40) units/L Total Creatine Kinase 1925 H (55-170) units/L 01/20/21 01/20/21 Range/Units 22:30 22:30 RBC (3.65-5.03) M/mm3 Hgb (11.8-15.2) gm/dl Hct (35.5-45.6) % [place] % (Auto) (0.0-7.3) % Seg Neutrophils % (40.0-70.0) % Sodium (137-145) mmol/L Potassium (3.6-5.0) mmol/L Chloride (98-107) mmol/L Carbon Dioxide (22-30) mmol/L BUN 23 H (9-20) mg/dL Creatinine 1.7 H (0.8-1.3) mg/dL Glucose (75-100) mg/dL Calcium 8.3 L D (8.4-10.2) mg/dL AST (5-40) units/L Total Creatine Kinase 3416 H (55-170) units/L All other labs normal.
[2021-01-21] MEDS: FLUoxetine 10 MG TAB PO SCH (13:11)
[2021-01-21] MEDS: SODIUM CHLORIDE 0.9% 1000 ML 1,000 ML IV SCH (16:19)
[2021-01-21] MEDS: traZODone 50 MG TAB PO SCH (22:00)
[2021-01-22 05:44] LABS: Basophils % (Auto) 0.9 % (0.0-1.8); Eosinophils # (Auto) 0.2 K/mm3 (0.0-0.4); Eosinophils % (Auto) 3.5 % (0.0-4.3); Hematocrit 40.3 % (35.5-45.6); Hemoglobin 13.5 gm/dl (11.8-15.2); Lymphocytes # (Auto) 1.5 K/mm3 (1.2-5.4); Lymphocytes % (Auto) 31.9 % (13.4-35.0); Mean Corpuscular HGB Conc 34 % (32-34); Mean Corpuscular Volume 85 fl (84-94); Monocytes # (Auto) 0.3 K/mm3 (0.0-0.8); Monocytes % (Auto) 7.1 % (0.0-7.3); Platelet Count 231 K/mm3 (140-440); Red Blood Count 4.74 M/mm3 (3.65-5.03); Red Cell Distribution Width 13.3 % (13.2-15.2)
[2021-01-22 06:01] LABS: Alanine Aminotransferase 55 units/L (7-56); Albumin 3.7 g/dL (3.9-5); BUN/Creatinine Ratio 10; Blood Urea Nitrogen 12 mg/dL (9-20); Calcium 8.8 mg/dL (8.4-10.2); Hemolysis Index 8
[2021-01-22] MEDS ORDERED: POTASSIUM CHLORIDE ER 20 MEQ TAB PO SCH (08:00)
[2021-01-22] MEDS: HEPARIN 5,000 UNIT/1 ML VIAL SUB-Q SCH ×3 (08:25→22:26)
--- NOTE | 2021-01-22 08:39 | Progress Note ---
Assessment and Plan Assessment and plan: (1) Rhabdomyolysis Current Visit: Yes Status: Acute Plan to address problem: Admit the patient to the medical floor. Regular diet. Half-normal saline at the rate of 125 cc/h. We will recheck the CK in the morning. Repeat BMP in the morning. Nephrology consult (2) Acute psychosis Current Visit: Yes Status: Acute Plan to address problem: Admit the patient to the medical floor. Patient is 1013. We consults psychiatry evaluation. Medication as per psych recommendation (3) Dehydration Current Visit: Yes Status: Acute Plan to address problem: Half-normal saline at the rate of 125 cc/h. We will recheck the CK in the morning. Repeat BMP in the morning. Nephrology consult (4) LFT elevation Current Visit: Yes Status: Acute Plan to address problem: We will recheck the CMP in the morning if needed will consult GI (5) KAMILLE (acute kidney injury) due to vasomotor nephropathy Current Visit: Yes Status: Acute Plan to address problem: Half-normal saline at the rate of 125 cc/h. Avoid nephrotoxic drug. Renally dose medication. Repeat BMP in the morning. Nephrology consult (6) DVT prophylaxis Current Visit: Yes Status: Acute Plan to address problem: Heparin 5000 units subcu every 12 hours for DVT prophylaxis. Pepcid 20 mg p.o. twice daily for GI prophylaxis. Patient is a full code 01/22/21 Patient is 30 yo with history of psychosis, bipolar disorder. He presented with altered mental status. He is diagnosed with acute psychosis, rhabdomyolysis, dehydration, acute kidney injury due to vasomotor nephropathy. He is on 1013. He says he wants to go home, but needs Psych re-eval. Follow daily Creatinine kinase for rhabdomyolysis. He is on iv fluids fror rhabdomyolysis and KAMILLE. Cr improved 1.2 today. History Interval history: patient presented with altered mental status, diagnosed with acute psychosis, rhabdomyolysis,KAMILLE He feels better today. He tells me he wants to go home, patient on 1013 Hospitalist Physical - Physical exam Narrative exam: Gen: Not in acute distress, lying in bed, has mask on HEENT: Normocephalic, atraumatic Neck : supple, no JVD Heart:S1 and S2 reg, no murmurs, rubs or gallop Lungs: clear to auscultation bilaterally, no wheeze Abd: Soft , non tender, non distended, normal bowel sounds Ext: No edema, no clubbing, no cyanosis Neuro: Awake, alert, oriented X3, moves all ext - Constitutional Vitals: Temp Pulse Resp BP Pulse Ox 97.2 F L 57 L 20 114/68 97 01/22/21 03:28 01/22/21 05:24 01/22/21 03:28 01/22/21 03:28 01/22/21 03:28 General appearance: Present: no acute distress, well-nourished Results - Labs CBC & Chem 7: 01/22/21 04:37 01/22/21 04:37 Labs: Laboratory Last Values WBC 4.8 K/mm3 (4.5-11.0) 01/22/21 04:37 RBC 4.74 M/mm3 (3.65-5.03) 01/22/21 04:37 Hgb 13.5 gm/dl (11.8-15.2) 01/22/21 04:37 Hct 40.3 % (35.5-45.6) D 01/22/21 04:37 MCV 85 fl (84-94) 01/22/21 04:37 MCH 29 pg (28-32) 01/22/21 04:37 MCHC 34 % (32-34) 01/22/21 04:37 RDW 13.3 % (13.2-15.2) 01/22/21 04:37 Plt Count 231 K/mm3 (140-440) 01/22/21 04:37 Lymph % (Auto) 31.9 % (13.4-35.0) 01/22/21 04:37 Iron % (Auto) 7.1 % (0.0-7.3) 01/22/21 04:37 Eos % (Auto) 3.5 % (0.0-4.3) 01/22/21 04:37 Baso % (Auto) 0.9 % (0.0-1.8) 01/22/21 04:37 Lymph # (Auto) 1.5 K/mm3 (1.2-5.4) 01/22/21 04:37 Iron # (Auto) 0.3 K/mm3 (0.0-0.8) 01/22/21 04:37 Eos # (Auto) 0.2 K/mm3 (0.0-0.4) 01/22/21 04:37 Baso # (Auto) 0.0 K/mm3 (0.0-0.1) 01/22/21 04:37 Seg Neutrophils % 56.6 % (40.0-70.0) 01/22/21 04:37 Seg Neutrophils # 2.7 K/mm3 (1.8-7.7) 01/22/21 04:37 Sodium 140 mmol/L (137-145) 01/22/21 04:37 Potassium 3.4 mmol/L (3.6-5.0) L 01/22/21 04:37 Chloride 107.4 mmol/L (98-107) H 01/22/21 04:37 Carbon Dioxide 25 mmol/L (22-30) 01/22/21 04:37 Anion Gap 11 mmol/L 01/22/21 04:37 BUN 12 mg/dL (9-20) 01/22/21 04:37 Creatinine 1.2 mg/dL (0.8-1.3) 01/22/21 04:37 Estimated GFR > 60 ml/min 01/22/21 04:37 BUN/Creatinine Ratio 10 % 01/22/21 04:37 Glucose 94 mg/dL (75-100) 01/22/21 04:37 Calcium 8.8 mg/dL (8.4-10.2) 01/22/21 04:37 Total Bilirubin 0.40 mg/dL (0.1-1.2) 01/22/21 04:37 AST 109 units/L (5-40) H 01/22/21 04:37 ALT 55 units/L (7-56) 01/22/21 04:37 Alkaline Phosphatase 50 units/L (35-129) 01/22/21 04:37 Total Creatine Kinase 3416 units/L (55-170) H 01/20/21 22:30 Total Protein 6.0 g/dL (6.3-8.2) L D 01/22/21 04:37 Albumin 3.7 g/dL (3.9-5) L 01/22/21 04:37 Albumin/Globulin Ratio 1.6 % 01/22/21 04:37 Nasal Screen MRSA (PCR) Negative (Negative) 01/21/21 09:20 Plasma/Serum Alcohol < 0.01 % (0-0.07) 01/20/21 17:55 Coronavirus (PCR) Negative (Negative) 01/21/21 09:20 Swenson/IV: Voiding Method Toilet Active Medications - Current Medications Current Medications: Generic Name Dose Route Start Last Admin Trade Name Freq PRN Reason Stop Dose Admin Acetaminophen 650 mg 01/21/21 00:27 Acetaminophen 325 Mg Tab PO Q4H PRN Pain MILD(1-3)/Fever >100.5/SALAS Albuterol 2.5 mg 01/21/21 00:27 Albuterol 2.5 Mg/3 Ml Nebu IH Q4HRT PRN Shortness Of Breath Famotidine 20 mg 01/21/21 10:00 01/21/21 22:00 Famotidine 20 Mg Tab PO 20 mg BID RICKY Administration Fluoxetine HCl 10 mg 01/21/21 12:00 01/21/21 13:11 Fluoxetine 10 Mg Tab PO 10 mg QDAY RICKY Administration Heparin Sodium (Porcine) 5,000 unit 01/21/21 10:00 01/22/21 08:25 Heparin 5,000 Unit/1 Ml Vial SUB-Q Not Given Q12HR RICKY Sodium Chloride 1,000 mls @ 125 mls/hr 01/21/21 16:00 01/21/21 16:19 Nacl 0.9% 1000 Ml IV 125 mls/hr DIRECT RICKY Administration Olanzapine 5 mg 01/21/21 12:00 01/21/21 13:11 Olanzapine 5 Mg Tab PO 5 mg QDAY RICKY Administration Ondansetron HCl 4 mg 01/21/21 00:27 Ondansetron 4 Mg/2 Ml Inj IV Q8H PRN Nausea And Vomiting Potassium Chloride 40 meq 01/22/21 08:00 Potassium Chloride Er 20 Meq Tab PO 01/22/21 11:00 ONCE RICKY Sodium Chloride 10 ml 01/21/21 10:00 01/21/21 22:00 Sodium Chloride 0.9% 10 Ml Flush Syringe IV 10 ml BID RICKY Administration Sodium Chloride 10 ml 01/21/21 00:27 Sodium Chloride 0.9% 10 Ml Flush Syringe IV PRN PRN LINE FLUSH Trazodone HCl 50 mg 01/21/21 22:00 01/21/21 22:00 Trazodone 50 Mg Tab PO 50 mg QHS RICKY Administration Nutrition/Malnutrition Assess - Dietary Evaluation Nutrition/Malnutrition Findings: Nutrition Notes Start: 01/21/21 11:03 Freq: Status: Active Protocol: Document 01/21/21 11:03 JEANA (Rec: 01/21/21 11:07 JEANA [id number]) Nutrition Notes Need for Assessment generated from: MD Order,painter foreman,MST Initial or Follow up Assessment Current Diagnosis Acute Kidney Injury Other Pertinent Diagnosis AMS, rhabdomyolysis, psychosis , dehydration, r/o COVID-19 Current Diet regular Subjective/Other Information MD order for ONS. RN screen for MST. Unable to speak with pt. Nutrition Intervention Follow-Up By: 01/22/21 Additional Comments F/u: assessment
--- NOTE | 2021-01-22 10:57 | Progress Note ---
Assessment and Plan (1) Rhabdomyolysis (2) Acute psychosis (3) Dehydration (4) LFT elevation (5) KAMILLE (acute kidney injury) KAMILLE resolved renally dose meds strict I&O daily weight Andrea Jackson MD [phone] Subjective Date of service: 01/22/21 Principal diagnosis: KAMILLE Interval history: no acute distress, comfortable Objective - Vital Signs Vital signs: Vital Signs - 12hr 01/21/21 01/22/21 01/22/21 23:37 03:28 05:24 Temperature 98.4 F 97.2 F L Pulse Rate 78 65 57 L Respiratory 18 20 Rate Blood Pressure 136/86 114/68 [Right] O2 Sat by Pulse 97 97 Oximetry - Lab 01/22/21 04:37 01/22/21 04:37 Most recent lab results Calcium 8.8 mg/dL (8.4-10.2) 01/22/21 04:37 Medications & Allergies - Medications Allergies/Adverse Reactions: Allergies pollen extracts Allergy (Mild, Verified 09/22/20 13:58) Unknown Active Medications: Generic Name Dose Route Start Last Admin Trade Name Freq PRN Reason Stop Dose Admin Acetaminophen 650 mg 01/21/21 00:27 Acetaminophen 325 Mg Tab PO Q4H PRN Pain MILD(1-3)/Fever >100.5/SALAS Albuterol 2.5 mg 01/21/21 00:27 Albuterol 2.5 Mg/3 Ml Nebu IH Q4HRT PRN Shortness Of Breath Famotidine 20 mg 01/21/21 10:00 01/21/21 22:00 Famotidine 20 Mg Tab PO 20 mg BID RICKY Administration Fluoxetine HCl 10 mg 01/21/21 12:00 01/21/21 13:11 Fluoxetine 10 Mg Tab PO 10 mg QDAY RICKY Administration Heparin Sodium (Porcine) 5,000 unit 01/21/21 10:00 01/22/21 08:25 Heparin 5,000 Unit/1 Ml Vial SUB-Q Not Given Q12HR RICKY Sodium Chloride 1,000 mls @ 125 mls/hr 01/21/21 16:00 01/21/21 16:19 Nacl 0.9% 1000 Ml IV 125 mls/hr DIRECT RICKY Administration Olanzapine 5 mg 01/21/21 12:00 01/21/21 13:11 Olanzapine 5 Mg Tab PO 5 mg QDAY RICKY Administration Ondansetron HCl 4 mg 01/21/21 00:27 Ondansetron 4 Mg/2 Ml Inj IV Q8H PRN Nausea And Vomiting Potassium Chloride 40 meq 01/22/21 08:00 Potassium Chloride Er 20 Meq Tab PO 01/22/21 11:00 ONCE RICKY Sodium Chloride 10 ml 01/21/21 10:00 01/21/21 22:00 Sodium Chloride 0.9% 10 Ml Flush Syringe IV 10 ml BID RICKY Administration Sodium Chloride 10 ml 01/21/21 00:27 Sodium Chloride 0.9% 10 Ml Flush Syringe IV PRN PRN LINE FLUSH Trazodone HCl 50 mg 01/21/21 22:00 01/21/21 22:00 Trazodone 50 Mg Tab PO 50 mg QHS RICKY Administration
[2021-01-22] MEDS: FLUoxetine 10 MG TAB PO SCH (11:24)
[2021-01-22] MEDS: FAMOTIDINE 20 MG TAB PO SCH ×2 (11:24→22:26)
[2021-01-22] MEDS: traZODone 50 MG TAB PO SCH (22:26)
[2021-01-22] MEDS: SODIUM CHLORIDE 0.9% 1000 ML 1,000 ML IV SCH (22:27)
[2021-01-23 05:54] LABS: Basophils % (Auto) 0.7 % (0.0-1.8); Eosinophils # (Auto) 0.1 K/mm3 (0.0-0.4); Eosinophils % (Auto) 3.4 % (0.0-4.3); Hematocrit 41.4 % (35.5-45.6); Lymphocytes # (Auto) 1.4 K/mm3 (1.2-5.4); Lymphocytes % (Auto) 32.6 % (13.4-35.0); Mean Corpuscular HGB Conc 34 % (32-34); Mean Corpuscular Volume 87 fl (84-94); Monocytes # (Auto) 0.3 K/mm3 (0.0-0.8); Monocytes % (Auto) 6.8 % (0.0-7.3); Platelet Count 217 K/mm3 (140-440); Red Blood Count 4.78 M/mm3 (3.65-5.03); Red Cell Distribution Width 13.1 % (13.2-15.2)
[2021-01-23 06:19] LABS: BUN/Creatinine Ratio 8; Blood Urea Nitrogen 9 mg/dL (9-20); Calcium 9.1 mg/dL (8.4-10.2); Hemolysis Index 6
--- NOTE | 2021-01-23 07:57 | Progress Note ---
Assessment and Plan (1) Rhabdomyolysis (2) Acute psychosis (3) Dehydration (4) LFT elevation (5) KAMILLE (acute kidney injury) KAMILLE resolved will sign off, will repeat BMP as an outpatient within1-2 weeks renally dose meds strict I&O daily weight Andrea Jackson MD [phone] Subjective Date of service: 01/23/21 Principal diagnosis: KAMILLE Interval history: no overnight events, ready to go home Objective - Vital Signs Vital signs: Vital Signs - 12hr 01/22/21 01/22/21 01/23/21 22:00 23:29 03:55 Temperature 98.6 F 98.5 F Pulse Rate 59 L 53 L 60 Respiratory 20 20 Rate Blood Pressure 108/69 99/59 O2 Sat by Pulse 99 97 97 Oximetry - General Appearance General appearance: well-developed, well-nourished, appears stated age EENT: ATNC, PERRL, mucous membranes moist Neck: no JVD, no carotid bruit Respiratory: Present: Clear to Ascultation. Absent: Rales, Ronchi Cardiology: regular, S1S2 Gastrointestinal: normoactive bowel sounds, no tenderness, no distended, no masses Integumentary: no rash, warm and dry Neurologic: no focal deficit, no asterixis, alert and oriented x3 Musculoskeletal: other (no edema in BLE) Psychiatric: mood/affect appropriate, cooperative - Lab 01/23/21 04:30 01/23/21 04:30 Most recent lab results Calcium 9.1 mg/dL (8.4-10.2) 01/23/21 04:30 Medications & Allergies - Medications Allergies/Adverse Reactions: Allergies pollen extracts Allergy (Mild, Verified 09/22/20 13:58) Unknown Home Medications: Home Medications Medication Instructions Recorded Confirmed Last Taken Type Benztropine [Cogentin] 0.5 mg PO QHS 01/22/21 01/22/21 01/20/21 History lamoTRIgine [LaMICtal] 100 mg PO QDAY 01/22/21 01/22/21 01/20/21 History Active Medications: Generic Name Dose Route Start Last Admin Trade Name Freq PRN Reason Stop Dose Admin Acetaminophen 650 mg 01/21/21 00:27 Acetaminophen 325 Mg Tab PO Q4H PRN Pain MILD(1-3)/Fever >100.5/SALAS Albuterol 2.5 mg 01/21/21 00:27 Albuterol 2.5 Mg/3 Ml Nebu IH Q4HRT PRN Shortness Of Breath Famotidine 20 mg 01/21/21 10:00 01/22/21 22:26 Famotidine 20 Mg Tab PO 20 mg BID RICKY Administration Fluoxetine HCl 10 mg 01/21/21 12:00 01/22/21 11:24 Fluoxetine 10 Mg Tab PO 10 mg QDAY RICKY Administration Heparin Sodium (Porcine) 5,000 unit 01/21/21 10:00 01/22/21 22:26 Heparin 5,000 Unit/1 Ml Vial SUB-Q 5,000 unit Q12HR RICKY Administration Sodium Chloride 1,000 mls @ 125 mls/hr 01/21/21 16:00 01/22/21 22:27 Nacl 0.9% 1000 Ml IV 125 mls/hr DIRECT RICKY Administration Olanzapine 5 mg 01/21/21 12:00 01/22/21 11:24 Olanzapine 5 Mg Tab PO 5 mg QDAY RICKY Administration Ondansetron HCl 4 mg 01/21/21 00:27 Ondansetron 4 Mg/2 Ml Inj IV Q8H PRN Nausea And Vomiting Sodium Chloride 10 ml 01/21/21 10:00 01/22/21 22:26 Sodium Chloride 0.9% 10 Ml Flush Syringe IV 10 ml BID RICKY Administration Sodium Chloride 10 ml 01/21/21 00:27 Sodium Chloride 0.9% 10 Ml Flush Syringe IV PRN PRN LINE FLUSH Trazodone HCl 50 mg 01/21/21 22:00 01/22/21 22:26 Trazodone 50 Mg Tab PO 50 mg QHS RICKY Administration
[2021-01-23] MEDS: SODIUM CHLORIDE 0.9% 1000 ML 1,000 ML IV SCH (09:15)
[2021-01-23] MEDS: FAMOTIDINE 20 MG TAB PO SCH ×2 (09:15→23:30)
[2021-01-23] MEDS: FLUoxetine 10 MG TAB PO SCH (09:15)
[2021-01-23] MEDS: HEPARIN 5,000 UNIT/1 ML VIAL SUB-Q SCH ×2 (09:20→23:31)
[2021-01-23] MEDS: traZODone 50 MG TAB PO SCH (23:30)
[2021-01-24] MEDS: SODIUM CHLORIDE 0.9% 1000 ML 1,000 ML IV SCH (04:14)
[2021-01-24 06:07] LABS: Basophils % (Auto) 1.1 % (0.0-1.8); Eosinophils # (Auto) 0.1 K/mm3 (0.0-0.4); Eosinophils % (Auto) 3.6 % (0.0-4.3); Hematocrit 42.1 % (35.5-45.6); Hemoglobin 14.3 gm/dl (11.8-15.2); Lymphocytes # (Auto) 1.5 K/mm3 (1.2-5.4); Lymphocytes % (Auto) 37.9 % (13.4-35.0); Mean Corpuscular HGB Conc 34 % (32-34); Mean Corpuscular Volume 85 fl (84-94); Monocytes # (Auto) 0.3 K/mm3 (0.0-0.8); Monocytes % (Auto) 7.1 % (0.0-7.3); Platelet Count 238 K/mm3 (140-440); Red Blood Count 4.94 M/mm3 (3.65-5.03); Red Cell Distribution Width 13.3 % (13.2-15.2)
[2021-01-24 06:08] LABS: BUN/Creatinine Ratio 8; Blood Urea Nitrogen 9 mg/dL (9-20); Calcium 8.6 mg/dL (8.4-10.2); Hemolysis Index 2
--- NOTE | 2021-01-24 09:18 | Progress Note ---
Assessment and Plan Assessment and Plan Assessment and plan: (1) Rhabdomyolysis Current Visit: Yes Status: Acute Plan to address problem: Improved CPK in mid (2) Acute psychosis Current Visit: Yes Status: Acute Plan to address problem: Psychosis is improved 1030 may be revoked (3) Dehydration Current Visit: Yes Status: Acute Plan to address problem: Half-normal saline at the rate of 125 cc/h. We will recheck the CK in the morning. Repeat BMP in the morning. Nephrology consult (4) LFT elevation Current Visit: Yes Status: Acute Plan to address problem: We will recheck the CMP in the morning if needed will consult GI (5) KAMILLE (acute kidney injury) due to vasomotor nephropathy Current Visit: Yes Status: Acute Plan to address problem: Improved (6) DVT prophylaxis Current Visit: Yes Status: Acute Plan to address problem: Heparin 5000 units subcu every 12 hours for DVT prophylaxis. Pepcid 20 mg p.o. twice daily for GI prophylaxis. Patient is a full code Subjective Date of service: 01/23/21 Principal diagnosis: Rhabdomyolysis Interval history: 01/22/21 Patient is 30 yo with history of psychosis, bipolar disorder. He presented with altered mental status. He is diagnosed with acute psychosis, rhabdomyolysis, dehydration, acute kidney injury due to vasomotor nephropathy. He is on 1013. He says he wants to go home, but needs Psych re-eval. Follow daily Creatinine kinase for rhabdomyolysis. He is on iv fluids fror rhabdomyolysis and KAMILLE. Cr improved 1.2 today. History Interval history: patient presented with altered mental status, diagnosed with acute psychosis, rhabdomyolysis,KAMILLE He feels better today. He tells me he wants to go home, patient on 1013 Objective - Constitutional Vitals: Vital Signs - 12hr 01/23/21 01/23/21 01/23/21 21:39 22:00 23:15 Temperature 98.0 F 98.4 F Pulse Rate 49 L 52 L 58 L Respiratory 20 18 Rate Blood Pressure 107/66 115/76 O2 Sat by Pulse 98 98 100 Oximetry 01/24/21 01/24/21 04:19 07:38 Temperature 97.6 F 97.5 F L Pulse Rate 64 88 Respiratory 18 18 Rate Blood Pressure 122/75 111/77 O2 Sat by Pulse 99 99 Oximetry General appearance: Present: no acute distress, well-nourished - EENT Eyes: PERRL, EOM intact ENT: hearing intact, clear oral mucosa Ears: bilateral: normal - Neck Neck: supple, normal ROM - Respiratory Respiratory effort: normal Respiratory: bilateral: CTA - Breasts Breasts: normal - Cardiovascular Rhythm: regular Heart Sounds: Present: S1 & S2. Absent: gallop, rub Extremities: pulses intact, No edema, normal color, Full ROM - Gastrointestinal General gastrointestinal: Present: soft, non-tender, non-distended, normal bowel sounds - Genitourinary Male genitourinary: normal - Integumentary Integumentary: clear, warm, dry - Musculoskeletal Musculoskeletal: 1, strength equal bilaterally - Neurologic Neurologic: moves all extremities - Psychiatric Psychiatric: memory intact, appropriate mood/affect, intact judgment & insight - Labs CBC & Chem 7: 01/24/21 04:44 01/24/21 04:44 Labs: Abnormal lab results 01/24/21 01/24/21 Range/Units 04:44 04:44 WBC 3.9 L (4.5-11.0) K/mm3 Lymph % (Auto) 37.9 H (13.4-35.0) % Potassium 3.5 L (3.6-5.0) mmol/L
--- NOTE | 2021-01-24 09:22 | Event Note ---
Date: 01/24/21 If mental health clears the patient-will discharge the patient
[2021-01-24] MEDS ORDERED: POTASSIUM CHLORIDE ER 20 MEQ TAB PO SCH (10:00)
[2021-01-24] MEDS: FLUoxetine 10 MG TAB PO SCH (10:22)
[2021-01-24] MEDS: FAMOTIDINE 20 MG TAB PO SCH ×2 (10:22→22:30)
[2021-01-24] MEDS: traZODone 50 MG TAB PO SCH (22:30)
[2021-01-25 06:33] LABS: Basophils # (Auto) 0.1 K/mm3 (0.0-0.1); Basophils % (Auto) 1.2 % (0.0-1.8); Eosinophils # (Auto) 0.2 K/mm3 (0.0-0.4); Eosinophils % (Auto) 3.4 % (0.0-4.3); Hematocrit 41.6 % (35.5-45.6); Lymphocytes # (Auto) 1.6 K/mm3 (1.2-5.4); Lymphocytes % (Auto) 36.3 % (13.4-35.0); Mean Corpuscular HGB Conc 34 % (32-34); Mean Corpuscular Volume 86 fl (84-94); Monocytes # (Auto) 0.3 K/mm3 (0.0-0.8); Monocytes % (Auto) 7.2 % (0.0-7.3); Platelet Count 245 K/mm3 (140-440); Red Blood Count 4.82 M/mm3 (3.65-5.03); Red Cell Distribution Width 13.1 % (13.2-15.2)
[2021-01-25 07:00] LABS: BUN/Creatinine Ratio 9; Blood Urea Nitrogen 11 mg/dL (9-20); Calcium 9.4 mg/dL (8.4-10.2); Hemolysis Index 32
[2021-01-25] MEDS: HEPARIN 5,000 UNIT/1 ML VIAL SUB-Q SCH ×2 (07:41→10:45)
--- NOTE | 2021-01-25 10:20 | Progress Note ---
Subjective - Reason for Consult Consult date: 01/25/21 Reason for consult: SI - Chief Complaint Chief complaint: The patient was seen today. He is sitting up watching t.v. He is more talkative and appears much better than the day before. His eye contact is a lot better. He verbalizes feeling better and states "I was able to get rest, eat better, and the meds made me feel better too." He denies SI/HI or hallucinations of any kind. The patient states "I'm just ready to go home." REVIEW OF SYSTEMS Constitutional: Negative for weight loss ENT: Negative for stridor Respiratory: Negative for cough or hemoptysis All other systems reviewed and are negative MENTAL STATUS EXAMINATION General Appearance and Behavior: Age appropriate, good hygiene, wearing appropriate clothes, calm, cooperative, good eye contact Cooperation: Participating, guarded Psychomotor Behavior: normal Mood: "better" Affect and affective range: congruent with stated mood Thought Process: goal oriented Thought Content: None Speech: Normal volume, Regular rate and rhythm, Suicidal Ideation: Denies Homicidal Ideation: Denies Hallucinations: Denies Delusions: None elicited Impulse Control: Normal Insight and Judgment: Limited insight and judgment Memory: Limited Attention: Limited Orientation: Alert, oriented Assessment and Plan (1) Acute Psychosis Treatment Plan d/c 1013 Olanzapine 5mg po daily Prozac 10mg po daily Trazodone 50mg po qhs Medical: Per primary Sitter: Defer to primary Disposition: Do not recommend acute psychiatric inpatient treatment. The patient understands that if SI/HI are to arise he is to seek immediate assistance. The direct mail marketer to further discuss safety plan. The patient to follow up in 7 to 14 days with outpatient psychiatry upon discharge Will sign off. Thanks. Case staffed with Dr. Ford. Mental Status Exam - Vital signs Last Vital Signs Temp 98.2 F 01/25/21 09:30 Pulse 75 01/25/21 04:03 Resp 18 01/25/21 09:30 BP 121/71 01/25/21 09:30 Pulse Ox 98 01/25/21 09:30
[2021-01-25] MEDS: FAMOTIDINE 20 MG TAB PO SCH (10:46)
[2021-01-25] MEDS: FLUoxetine 10 MG TAB PO SCH (10:46)
[2021-01-25 12:59] VITALS: BP 123/69
== END 2021-01-25 16:45 | disposition home or self-care (01) | DRG 557 ==
LOC: ED 15:05 → 3A 01-21 01:28 → 4A 01-21 06:36 → OBSVTOIN 01-22 11:53
PROVIDERS: ADMIT Hospitalist; ATTEND Internal Medicine
DX: M62.82 Rhabdomyolysis (principal); N17.0 Acute kidney failure with tubular necrosis; F23 Brief psychotic disorder; E86.0 Dehydration; R79.89 Other specified abnormal findings of blood chemistry; F39 Unspecified mood [affective] disorder; Z88.9 Allergy status to unspecified drugs, medicaments and biological substances; Z79.899 Other long term (current) drug therapy; Z79.891 Long term (current) use of opiate analgesic; Z79.01 Long term (current) use of anticoagulants
CPT/HCPCS: 36415; 71045; 76770; 80048; 80053; 80320; 82550; 85025; 87641; G0378; G0480; J1644; J2060; J3486; J7030; U0003

== ENCOUNTER 2021-01-26 17:00 | Emergency (ER) | payer OTHER ==
[~2021-01-26 17:00] MED LIST: LORazepam 2 MG/ML VIAL IM ONE
[2021-01-26] MEDS ORDERED: LORazepam 2 MG/ML VIAL ONE (17:05)
[2021-01-26] MEDS ORDERED: WATER FOR INJ Sterile (PF) 10 ML ONE (17:06)
[2021-01-26] MEDS ORDERED: ZIPRASIDONE MESYLATE 20 MG VIAL IM ONE ×2 (17:06→18:45)
[2021-01-26 17:46] LABS: Bilirubin,Urine NEG (Negative); Blood,Urine NEG (Negative); Color,Urine Yellow (Yellow); Mucus,Urine FEW /HPF; Protein,Urine <15 mg/dL mg/dL (Negative); Urobilinogen,Urine < 2.0 mg/dL (<2.0); WBC,Urine < 1.0 /HPF (0.0-6.0)
[2021-01-26 17:54] LABS: Amphetamine Screen,Urine Negative; Benzodiazepines Screen,Urine Negative; Cannabinoid Screen,Urine Negative; Cocaine Screen,Urine Negative; Methadone Screen,Urine Negative; Opiate Screen,Urine Negative
--- NOTE | 2021-01-26 21:05 | Emergency Department Report ---
ED General Adult HPI - General Chief complaint: Psych Stated complaint: MH EVAL Time Seen by Provider: 01/26/21 17:33 Source: EMS Mode of arrival: Ambulatory Limitations: No Limitations - History of Present Illness Initial comments: Patient presents to the emergency department via EMS for psychosis. The patient was recently discharged from this facility for rhabdomyolysis and psychosis. The patient is responding to internal stimuli and is hyperverbal but is easily redirectable and easy to direct. -: Sudden Severity scale (0 -10): 0 Consistency: constant Improves with: none Worsens with: none Associated Symptoms: denies other symptoms Treatments Prior to Arrival: none - Related Data Previous Rx's Medication Instructions Recorded Last Taken Type Benztropine [Cogentin] 0.5 mg PO QHS #30 01/25/21 Unknown Rx FLUoxetine HCL [Prozac] 10 mg PO DAILY #30 capsule 01/25/21 Unknown Rx OLANZapine [Zyprexa] 5 mg PO DAILY #30 tablet 01/25/21 Unknown Rx lamoTRIgine [LaMICtal] 100 mg PO QDAY #30 01/25/21 Unknown Rx traZODone [Desyrel] 50 mg PO QHS #30 tab 01/25/21 Unknown Rx Allergies Allergy/AdvReac Type Severity Reaction Status Date / Time pollen extracts Allergy Mild Unknown Verified 09/22/20 13:58 ED Review of Systems ROS: Stated complaint: MH EVAL Other details as noted in HPI Comment: All other systems reviewed and negative Constitutional: denies: chills, fever Eyes: denies: eye pain, eye discharge, vision change ENT: denies: ear pain, throat pain Respiratory: denies: cough, shortness of breath, wheezing Cardiovascular: denies: chest pain, palpitations Endocrine: no symptoms reported Gastrointestinal: denies: abdominal pain, nausea, diarrhea Genitourinary: denies: urgency, dysuria Musculoskeletal: denies: back pain, joint swelling, arthralgia Skin: denies: rash, lesions Neurological: denies: headache, weakness, paresthesias Psychiatric: denies: anxiety, depression, auditory hallucinations, visual hallucinations, homicidal thoughts, suicidal thoughts Hematological/Lymphatic: denies: easy bleeding, easy bruising ED Past Medical Hx - Past Medical History Hx Congestive Heart Failure: No Hx Diabetes: No Hx Asthma: No Hx COPD: No Hx HIV: No - Social History Smoking Status: Never Smoker Substance Use Type: None - Medications Home Medications: Home Medications Medication Instructions Recorded Confirmed Last Taken Type Benztropine [Cogentin] 0.5 mg PO QHS #30 01/25/21 Unknown Rx FLUoxetine HCL [Prozac] 10 mg PO DAILY #30 capsule 01/25/21 Unknown Rx OLANZapine [Zyprexa] 5 mg PO DAILY #30 tablet 01/25/21 Unknown Rx lamoTRIgine [LaMICtal] 100 mg PO QDAY #30 01/25/21 Unknown Rx traZODone [Desyrel] 50 mg PO QHS #30 tab 01/25/21 Unknown Rx ED Physical Exam - General Limitations: No Limitations General appearance: alert, in no apparent distress, other (Psychotic) - Head Head exam: Present: atraumatic, normocephalic - Eye Eye exam: Present: normal appearance - ENT ENT exam: Present: mucous membranes moist - Neck Neck exam: Present: normal inspection - Respiratory Respiratory exam: Present: normal lung sounds bilaterally. Absent: respiratory distress - Cardiovascular Cardiovascular Exam: Present: regular rate, normal rhythm. Absent: systolic murmur, diastolic murmur, rubs, gallop - GI/Abdominal GI/Abdominal exam: Present: soft, normal bowel sounds. Absent: distended, tenderness - Rectal Rectal exam: Present: deferred - Extremities Exam Extremities exam: Present: normal inspection - Back Exam Back exam: Present: normal inspection - Neurological Exam Neurological exam: Present: alert, oriented X3 - Psychiatric Psychiatric exam: Present: other (The patient is psychotic and responding to internal stimuli) - Skin Skin exam: Present: warm, dry, intact, normal color. Absent: rash ED Course Vital Signs 01/26/21 17:37 Temperature 98.3 F Pulse Rate 89 Respiratory 18 Rate Blood Pressure 126/82 [Left] O2 Sat by Pulse 99 Oximetry ED Medical Decision Making - Medical Decision Making 1013 applied Patient received Geodon and Ativan Awaiting completion of blood work for medical clearance Awaiting mental health evaluation Awaiting placement Critical care attestation.: If time is entered above; I have spent that time in minutes in the direct care of this critically ill patient, excluding procedure time. ED Disposition Clinical Impression: Psychosis Disposition: [id number]/[facility] PSY HOSP/PSY UNIT Is pt being admited?: No Does the pt Need Aspirin: No Condition: Stable Referrals: PRIMARY CARE, [Primary Care Provider] - 3-5 Days
[2021-01-27] LABS: Basophils % (Auto) 0.2 % (0.0-1.8); Eosinophils % (Auto) 0.7 % (0.0-4.3); Hematocrit 44.3 % (35.5-45.6); Lymphocytes # (Auto) 1.3 K/mm3 (1.2-5.4); Lymphocytes % (Auto) 20.1 % (13.4-35.0); Mean Corpuscular HGB Conc 34 % (32-34); Mean Corpuscular Volume 86 fl (84-94); Monocytes # (Auto) 0.4 K/mm3 (0.0-0.8); Monocytes % (Auto) 6.1 % (0.0-7.3); Platelet Count 271 K/mm3 (140-440); Red Blood Count 5.16 M/mm3 (3.65-5.03); Red Cell Distribution Width 13.5 % (13.2-15.2)
[2021-01-27 00:23] LABS: Alanine Aminotransferase 81 units/L (7-56); Albumin 4.4 g/dL (3.9-5); BUN/Creatinine Ratio 9; Blood Urea Nitrogen 14 mg/dL (9-20); Calcium 9.7 mg/dL (8.4-10.2); Hemolysis Index 0
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
--- NOTE | 2021-01-27 11:13 | Event Note ---
Date: 01/27/21 S: No events reported overnight O: Vital Signs 01/26/21 01/26/21 01/27/21 17:37 22:05 07:25 Temperature 98.3 F Pulse Rate 89 Respiratory 18 Rate Blood Pressure 126/82 [Left] O2 Sat by Pulse 99 99 100 Oximetry 01/27/21 08:27 Temperature 98.9 F Pulse Rate 84 Respiratory 18 Rate Blood Pressure 112/77 [Left] O2 Sat by Pulse 98 Oximetry A: Psychosis P: Awaiting inpatient psych placement
[2021-01-27] MEDS ORDERED: traZODone 50 MG TAB PO ONE (12:00)
[2021-01-27 16:18] VITALS: BP 114/72
[2021-01-27] MEDS ORDERED: traZODone 50 MG TAB PO SCH (22:00)
== END 2021-01-27 16:58 ==
LOC: ED 17:00
DX: F29 Unspecified psychosis not due to a substance or known physiological condition (principal); Z20.822 Contact with and (suspected) exposure to COVID-19; Z88.8 Allergy status to other drugs, medicaments and biological substances; Z79.899 Other long term (current) drug therapy
CPT/HCPCS: 36415; 80053; 80307; 81001; 85025; 96372; 99285; J2060; J3486; U0003; 80320; G0480

== ENCOUNTER 2022-01-06 14:46 | Emergency (ER) | payer SELFPAY ==
[2022-01-06] MEDS ORDERED: diphenhydrAMINE 50 MG/ML VIAL ONE (14:56)
[2022-01-06] MEDS ORDERED: LORazepam 2 MG/ML VIAL ONE (14:56)
[2022-01-06] MEDS ORDERED: HALOPERIDOL LACTATE 5 MG/1 ML INJ ONE (14:56)
[2022-01-06] MEDS ORDERED: HALOPERIDOL LACTATE 5 MG/1 ML INJ IM ONE (14:58)
[2022-01-06] MEDS ORDERED: LORazepam 2 MG/ML VIAL IM ONE (14:58)
[2022-01-06] MEDS ORDERED: diphenhydrAMINE 50 MG/ML VIAL IM ONE (14:58)
--- NOTE | 2022-01-06 15:14 | Emergency Department Report ---
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 Per firefighters, they noticed that patient was off since yesterday and likely not taking his medications as this has happened in the past as well and he became "manic". The patient's mother informed both fountain pen turner and police that several days ago, there was "motar" going off (?) and mother noticed since then, that's when patient seem off. At the time of my evaluation, patient is in handcuff by police and appears internally agitated but is trying to keep his calmness. When I approached the patient and thanked for his service as well as asking for his rank while in [facility]; patient states that it does not matter. Patient said that he was in the [employer] for about 9 years. Patient denies suicidal ideation but states that he is having homicidal thoughts/ideation. When I asked who he wants to hurt, he states he wants to kill everyone who has lied to him but declined to detail further any specific person. Patient states he is not on any medications vs his colleagues/mother states he has not been taking his medications. Patient denies hallucination (auditory/visual/tactile). - Related Data Previous Rx's Medication Instructions Recorded Last Taken Type Benztropine [Cogentin] 0.5 mg PO QHS #30 01/25/21 Unknown Rx FLUoxetine HCL [Prozac] 10 mg PO DAILY #30 capsule 01/25/21 Unknown Rx OLANZapine [Zyprexa] 5 mg PO DAILY #30 tablet 01/25/21 Unknown Rx lamoTRIgine [LaMICtal] 100 mg PO QDAY #30 01/25/21 Unknown Rx traZODone [Desyrel] 50 mg PO QHS #30 tab 01/25/21 Unknown Rx Allergies Allergy/AdvReac Type Severity Reaction Status Date / Time pollen extracts Allergy Mild Unknown Verified 01/06/22 14:51 ED Review of Systems ROS: Stated complaint: PSYCH Other details as noted in HPI Comment: All other systems reviewed and negative Constitutional: no symptoms reported Eyes: as per HPI ENT: as per HPI Respiratory: no symptoms reported Cardiovascular: as per HPI Endocrine: no symptoms reported Gastrointestinal: as per HPI Genitourinary: as per HPI Musculoskeletal: as per HPI Skin: as per HPI Neurological: as per HPI Psychiatric: homicidal thoughts. denies: anxiety, depression, auditory hallucinations, visual hallucinations, suicidal thoughts Hematological/Lymphatic: as per HPI ED Past Medical Hx - Past Medical History Previous Medical History?: Yes Hx Congestive Heart Failure: No Hx Diabetes: No Hx Asthma: No Hx COPD: No Hx HIV: No - Social History Smoking Status: Never Smoker Substance Use Type: None - Medications Home Medications: Home Medications Medication Instructions Recorded Confirmed Last Taken Type Benztropine [Cogentin] 0.5 mg PO QHS #30 01/25/21 01/27/21 Unknown Rx FLUoxetine HCL [Prozac] 10 mg PO DAILY #30 capsule 01/25/21 01/27/21 Unknown Rx OLANZapine [Zyprexa] 5 mg PO DAILY #30 tablet 01/25/21 01/27/21 Unknown Rx lamoTRIgine [LaMICtal] 100 mg PO QDAY #30 01/25/21 01/27/21 Unknown Rx traZODone [Desyrel] 50 mg PO QHS #30 tab 01/25/21 01/27/21 Unknown Rx ED Physical Exam - General Limitations: No Limitations General appearance: alert, in distress - Head Head exam: Present: atraumatic, normocephalic, normal inspection - Eye Eye exam: Present: normal appearance, PERRL, EOMI Pupils: Present: normal accommodation - ENT ENT exam: Present: normal exam, mucous membranes moist - Neck Neck exam: Present: normal inspection, full ROM - Respiratory Respiratory exam: Present: normal lung sounds bilaterally - Cardiovascular Cardiovascular Exam: Present: regular rate, normal rhythm, normal heart sounds - GI/Abdominal GI/Abdominal exam: Present: soft - Extremities Exam Extremities exam: Present: normal inspection, full ROM, normal capillary refill - Back Exam Back exam: Present: normal inspection, full ROM - Neurological Exam Neurological exam: Present: alert, oriented X3, CN II-XII intact, normal gait - Psychiatric Psychiatric exam: Present: agitated, manic, homicidal ideation - Skin Skin exam: Present: warm, normal color Critical care attestation.: If time is entered above; I have spent that time in minutes in the direct care of this critically ill patient, excluding procedure time. ED Disposition Clinical Impression: Homicidal ideations Condition: Stable
[2022-01-07 00:20] LABS: Basophils % (Auto) 0.3 % (0.0-1.8); Eosinophils # (Auto) 0.1 K/mm3 (0.0-0.4); Eosinophils % (Auto) 1.3 % (0.0-4.3); Hematocrit 43.3 % (35.5-45.6); Hemoglobin 14.3 gm/dl (11.8-15.2); Lymphocytes % (Auto) 32.1 % (13.4-35.0); Mean Corpuscular HGB Conc 33 % (32-34); Mean Corpuscular Volume 85 fl (84-94); Monocytes # (Auto) 0.6 K/mm3 (0.0-0.8); Monocytes % (Auto) 8.8 % (0.0-7.3); Platelet Count 298 K/mm3 (140-440); Red Blood Count 5.07 M/mm3 (3.65-5.03); Red Cell Distribution Width 13.5 % (13.2-15.2)
[2022-01-07 00:28] LABS: BUN/Creatinine Ratio 8; Blood Urea Nitrogen 11 mg/dL (9-20); Calcium 10.1 mg/dL (8.4-10.2); Hemolysis Index 6
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
[2022-01-07 09:50] LABS: Bilirubin,Urine NEG (Negative); Blood,Urine NEG (Negative); Color,Urine Yellow (Yellow); Protein,Urine <15 mg/dL mg/dL (Negative); Urobilinogen,Urine < 2.0 mg/dL (<2.0)
[2022-01-07 09:53] LABS: Amphetamine Screen,Urine Negative; Benzodiazepines Screen,Urine Negative; Cannabinoid Screen,Urine Negative; Cocaine Screen,Urine Negative; Methadone Screen,Urine Negative; Opiate Screen,Urine Negative
[2022-01-07 09:54] LABS: Bacteria,Urine 1+ /HPF (Negative); Mucus,Urine 1+ /HPF
[2022-01-07] MEDS ORDERED: ZIPRASIDONE MESYLATE 20 MG VIAL IM PRN (10:00)
[2022-01-07] MEDS ORDERED: DIVALPROEX DR 250 MG TAB PO SCH (10:00)
[2022-01-07 10:05] VITALS: BP 124/69
--- NOTE | 2022-01-07 11:18 | Event Note ---
Date: 01/07/22 vss , no events overnight medically cleared , awaiting transfer on inpatient [facility] facility
[2022-01-07] MEDS ORDERED: traZODone 50 MG TAB PO SCH (22:00)
== END 2022-01-07 15:58 ==
LOC: ED 14:46
DX: R45.850 Homicidal ideations (principal); Z91.09 Other allergy status, other than to drugs and biological substances; Z20.822 Contact with and (suspected) exposure to COVID-19
CPT/HCPCS: 36415; 80048; 80307; 81001; 85025; 96372; 99285; J1200; J1630; J2060; U0003; 80320; G0480